=== PATIENT | female | born 1990 | race Caucasian/White ===

== ENCOUNTER 2016-08-08 21:19 | Emergency (ER) | payer OTHER ==
[~2016-08-08] VITALS: Ht 160 cm; Wt 114.3 kg
[~2016-08-08 21:19] MED LIST: CAMILA0.35 MG PO; FERROUS SULFAT325 MG PO; IBUPROFEN800 MG PO; LEVO-T88 MCG PO; LEVOTHYROXINE25 MCG PO; PRENATAL TABLE1 EAC3 PO; VENLAFAXINE HCL75 MG PO; VITAMIN D32000 UNI1 PO
[2016-08-09] MEDS ORDERED: FIORICET 50-301 EACH PO (00:28)
[2016-08-09 00:45] VITALS: BP 129/80
== END 2016-08-09 00:48 | disposition home or self-care (01) ==
LOC: EME 21:19
DX: R51 Headache (principal); E03.9 Hypothyroidism, unspecified
CPT/HCPCS: 70450; 99281; 99284